=== PATIENT | female | born 1950 | race Two or more races ===

== ENCOUNTER 2022-09-19 15:45 | Inpatient (IN) | payer MEDICARE, MEDICAID ==
[~2022-09-19] VITALS: Ht 149.9 cm; Wt 48.0 kg
[2022-09-19 16:19] LABS: Basophils # (auto) 0.1 10 ^3/uL (0-0.2); Eosinophils # (auto) 0 10 ^3/uL (0-0.8); Eosinophils % (auto) 0.9 % (0.0-7.0); Hematocrit 42.5 % (36.0-46.0); Lymphocytes # (auto) 2.2 10 ^3/uL (0.4-5.4); Lymphocytes % (auto) 39.9 % (10.0-50.0); Mean Corpuscular Hemoglobin 32.7 pg (28.0-32.0); Mean Corpuscular Hgb Conc. 32.9 g/dL (32.0-36.0); Mean Corpuscular Volume 99.6 fL (80.0-100.0); Monocytes # (auto) 0.3 10 ^3/uL (0-1.3); Monocytes % (auto) 5.2 % (0.0-12.0); Nucleated Red Blood Cells % 0.1 %; Red Blood Cells 4.27 10^6/uL (4.0-5.20); Red Cell Distribution Width 12.5 % (11.8-14.3); White Blood Cell 5.6 10^3/uL (4.4-10.8)
[2022-09-19 16:35] LABS: INR 1.05 (0.9-1.15); Partial Thromboplastin Time 31.9 SEC (24.5-34.5)
[2022-09-19 16:37] LABS: Urine Bacteria FEW /hpf (None Seen); Urine Blood Negative /uL (Negative); Urine Clarity Clear (Clear); Urine Color Colorless (Yellow); Urine Protein, UAD TRACE (Negative); Urine Specific Gravity 1.008 (1.001-1.035); Urine Urobilinogen Normal (Negative); Urine WBC 6 /hpf (0 - 5)
[2022-09-19 16:37] LABS: Albumin 4.1 g/dL (3.4-5.0); Calcium 8.8 mg/dL (8.5-10.1); Magnesium 2.8 mg/dL (1.6-2.6); Potassium 3.4 mmol/L (3.5-5.1)
[2022-09-19 16:42] LABS: BUN/Creatinine Ratio 12.8 (10.0-20.0); Bilirubin, Total 0.6 mg/dL (0.2-1.0); Total Protein 8.1 g/dL (6.4-8.2)
[2022-09-19] MEDS ORDERED: dilTIAZem HCL 60 MG TAB GT ONE (17:00)
[2022-09-19] MEDS ORDERED: POTASSIUM EFFERVESENT TAB 25 MEQ PO ONE (17:15)
[2022-09-19] MEDS ORDERED: dilTIAZem HCL 60 MG TAB PO ONE (17:30)
[2022-09-19] MEDS ORDERED: NITROGLYCERIN 0.4 MG SL TAB SL PRN (19:45)
[2022-09-19] MEDS ORDERED: DOCUSATE SOD 100 MG CAP PO PRN (19:45)
[2022-09-19] MEDS ORDERED: HYDROcodone-ACET 5/325MG TAB PO PRN (19:45)
[2022-09-19] MEDS ORDERED: ACETAMINOPHEN 325 MG TAB PO PRN (19:45)
[2022-09-19] MEDS ORDERED: MORPHINE SULFATE INJ 2 MG/ml SYRG IV PRN ×2 (19:45)
[2022-09-19] MEDS ORDERED: DILT-26 PO (19:56)
[2022-09-19] MEDS ORDERED: ALPR0.5T7 PO (19:56)
[2022-09-19] MEDS ORDERED: APIX5TAB PO (19:56)
[2022-09-19] MEDS ORDERED: ROSU1TAB14 PO (19:56)
[2022-09-19] MEDS ORDERED: POTA1TAB4 PO (19:56)
[2022-09-19] MEDS: APIXABAN 5 MG TAB PO SCH (21:01)
[2022-09-19] MEDS ORDERED: ATORVASTATIN 20 MG TAB PO SCH (22:00)
[2022-09-20] MEDS ORDERED: ONDANSETRON HCL 4 MG/2 ML VIAL IV PRN (02:00)
[2022-09-20 04:54] LABS: Basophils # (auto) 0.1 10 ^3/uL (0-0.2); Basophils % (auto) 2.1 % (0.0-2.0); Eosinophils # (auto) 0.1 10 ^3/uL (0-0.8); Eosinophils % (auto) 2.1 % (0.0-7.0); Hematocrit 43.3 % (36.0-46.0); Hemoglobin 14.4 g/dL (12.2-16.2); Lymphocytes # (auto) 1.9 10 ^3/uL (0.4-5.4); Lymphocytes % (auto) 40.7 % (10.0-50.0); Mean Corpuscular Hemoglobin 33.5 pg (28.0-32.0); Mean Corpuscular Hgb Conc. 33.2 g/dL (32.0-36.0); Mean Corpuscular Volume 100.7 fL (80.0-100.0); Monocytes # (auto) 0.4 10 ^3/uL (0-1.3); Monocytes % (auto) 7.6 % (0.0-12.0); Neutrophils # (auto) 2.2 10 ^3/uL (1.6-8.6); Neutrophils % (auto) 47.5 % (37.0-80.0); Nucleated Red Blood Cells % 0.1 %; Red Cell Distribution Width 12.7 % (11.8-14.3); White Blood Cell 4.7 10^3/uL (4.4-10.8)
[2022-09-20 05:00] VITALS: PULSE 80; RESP 16; O2SAT 97
[2022-09-20 05:13] LABS: Albumin 3.9 g/dL (3.4-5.0); Calcium 8.5 mg/dL (8.5-10.1); Potassium 3.7 mmol/L (3.5-5.1)
[2022-09-20 05:16] LABS: BUN/Creatinine Ratio 11.1 (10.0-20.0); Bilirubin, Total 0.8 mg/dL (0.2-1.0); Total Protein 8.1 g/dL (6.4-8.2)
[2022-09-20 08:00] VITALS: PULSE 80; RESP 15; O2SAT 97
[2022-09-20 09:01] LABS: Cholesterol 134 mg/dL (< 200)
[2022-09-20 09:04] LABS: HDL Cholesterol 80 mg/dL (40-59); LDL Cholesterol 47 mg/dL (< 100); Triglycerides 59 mg/dL (< 150)
[2022-09-20] MEDS ORDERED: POTASSIUM CHL 20 Meq TABLET PO SCH (10:00)
[2022-09-20] MEDS: APIXABAN 5 MG TAB PO SCH ×2 (11:11→22:07)
[2022-09-20] MEDS: PANTOPRAZOLE 40 MG TAB PO SCH (11:11)
[2022-09-20] MEDS: dilTIAZem HCL 180MG ER CAP PO SCH (11:12)
[2022-09-20] MEDS: POTASSIUM CHL 20 Meq TABLET PO SCH (11:12)
[2022-09-20 19:28] VITALS: PULSE 76; RESP 19; O2SAT 95
[2022-09-20] MEDS ORDERED: ATORVASTATIN 20 MG TAB PO SCH (22:00)
[2022-09-20 22:30] VITALS: PULSE 80; RESP 17; O2SAT 93
[2022-09-20 22:35] VITALS: BP 115/67; PULSE 76; RESP 17; TEMP 97.7
[2022-09-20 22:38] VITALS: PULSE 80; RESP 17; O2SAT 93
[2022-09-20] MEDS ORDERED: ALEN70TA21 PO (23:36)
[2022-09-21 05:00] VITALS: BP 115/76; PULSE 74; RESP 18; TEMP 97.7; O2SAT 97
[2022-09-21 08:00] VITALS: PULSE 75; PULSE 86; RESP 17; O2SAT 97
[2022-09-21] MEDS: dilTIAZem HCL 180MG ER CAP PO SCH (09:01)
[2022-09-21] MEDS: PANTOPRAZOLE 40 MG TAB PO SCH (09:02)
[2022-09-21] MEDS: APIXABAN 5 MG TAB PO SCH (09:02)
[2022-09-21] MEDS: POTASSIUM CHL 20 Meq TABLET PO SCH (09:02)
[2022-09-21 09:08] VITALS: BP 112/71; PULSE 86; RESP 19; TEMP 98; O2SAT 97
[2022-09-21] MEDS ORDERED: POTASSIUM CHL 20 Meq TABLET PO ONE (10:30)
[2022-09-21] MEDS ORDERED: DILT-102 PO (10:34)
[2022-09-21 11:45] VITALS: BP 112/71; PULSE 85
[2022-09-21 13:00] VITALS: BP 129/97; PULSE 69; RESP 19; TEMP 97.3; O2SAT 99
[2022-09-22] MEDS ORDERED: POTASSIUM CHL 20 Meq TABLET PO SCH (10:00)
[2022-09-22] MEDS ORDERED: dilTIAZem 120MG ER CAP PO SCH (10:00)
== END 2022-09-21 15:57 | disposition home or self-care (01) | DRG 310 ==
LOC: ER 15:45 → TELE 19:56 → TELE-CENTR 09-20 21:49
PROVIDERS: ADMIT Nurse Practitioner Acute Care; ATTEND Nurse Practitioner Acute Care
DX: I48.20 Chronic atrial fibrillation, unspecified (principal); E87.6 Hypokalemia; E78.5 Hyperlipidemia, unspecified; E83.41 Hypermagnesemia; I10 Essential (primary) hypertension; I05.0 Rheumatic mitral stenosis; I25.10 Atherosclerotic heart disease of native coronary artery without angina pectoris; I95.9 Hypotension, unspecified; R00.0 Tachycardia, unspecified; I48.92 Unspecified atrial flutter; Z79.01 Long term (current) use of anticoagulants; Z91.148 Patient's other noncompliance with medication regimen for other reason; Z79.899 Other long term (current) drug therapy
CPT/HCPCS: 36415; 71045; 80053; 80061; 81001; 83735; 83880; 84443; 84484; 85025; 85379; 85610; 85730; 93005; 93306; G0378

== ENCOUNTER 2022-09-29 10:27 | Inpatient (IN) | payer MEDICARE, MEDICAID ==
[~2022-09-29] VITALS: Ht 149.9 cm; Wt 56.3 kg
[~2022-09-29 10:27] MED LIST: ALEN70TA21 PO; APIX5TAB PO; DILT-102 PO; POTA1TAB4 PO; ROSU1TAB14 PO
[2022-09-29 10:56] LABS: Basophils # (auto) 0.1 10 ^3/uL (0-0.2); Basophils % (auto) 1.4 % (0.0-2.0); Eosinophils # (auto) 0.1 10 ^3/uL (0-0.8); Eosinophils % (auto) 2.4 % (0.0-7.0); Hemoglobin 13.9 g/dL (12.2-16.2); Lymphocytes # (auto) 1.6 10 ^3/uL (0.4-5.4); Lymphocytes % (auto) 32.3 % (10.0-50.0); Mean Corpuscular Hemoglobin 33.3 pg (28.0-32.0); Mean Corpuscular Hgb Conc. 33.8 g/dL (32.0-36.0); Mean Corpuscular Volume 98.5 fL (80.0-100.0); Monocytes # (auto) 0.3 10 ^3/uL (0-1.3); Monocytes % (auto) 6.6 % (0.0-12.0); Neutrophils # (auto) 2.8 10 ^3/uL (1.6-8.6); Neutrophils % (auto) 57.3 % (37.0-80.0); Nucleated Red Blood Cells % 0.2 %; Red Blood Cells 4.16 10^6/uL (4.0-5.20); Red Cell Distribution Width 12.3 % (11.8-14.3); White Blood Cell 4.8 10^3/uL (4.4-10.8)
[2022-09-29] MEDS ORDERED: SODIUM CHLORIDE 0.9% 1,000 ML IV ONE (11:00)
[2022-09-29 11:10] LABS: Albumin 4.4 g/dL (3.4-5.0); Calcium 8.9 mg/dL (8.5-10.1); Potassium 3.6 mmol/L (3.5-5.1)
[2022-09-29 11:13] LABS: BUN/Creatinine Ratio 14.6 (10.0-20.0); Total Protein 8.3 g/dL (6.4-8.2)
[2022-09-29 14:23] LABS: Urine WBC None Seen /hpf (0 - 5)
[2022-09-29 14:33] LABS: Urine Bacteria NONE SEEN /hpf (None Seen); Urine Blood Negative /uL (Negative); Urine Clarity Clear (Clear); Urine Color STRAW (Yellow); Urine Protein, UAD Negative (Negative); Urine Specific Gravity 1.006 (1.001-1.035); Urine Urobilinogen Normal (Negative)
[2022-09-29] MEDS ORDERED: ACETAMINOPHEN 325 MG TAB PO PRN (16:00)
[2022-09-29] MEDS ORDERED: dilTIAZem 25 MG/5 ML VIAL IV PRN (16:00)
[2022-09-29] MEDS ORDERED: HYDROcodone-ACET 5/325MG TAB PO PRN (16:00)
[2022-09-29] MEDS ORDERED: ONDANSETRON HCL 4 MG/2 ML VIAL IV PRN (16:00)
[2022-09-29] MEDS ORDERED: DOCUSATE SOD 100 MG CAP PO PRN (16:00)
[2022-09-29] MEDS: dilTIAZem HCL 180MG ER CAP PO SCH (16:11)
[2022-09-29] MEDS ORDERED: ALENDRONATE SODIUM 10 MG TAB PO SCH (16:15)
[2022-09-29 18:00] VITALS: PULSE 91; RESP 18; O2SAT 97
[2022-09-29] MEDS: SODIUM CHLOR 0.9% PF (SALINE LOCK) 10ML VIAL/SYR IV SCH (23:12)
[2022-09-29] MEDS: APIXABAN 5 MG TAB PO SCH (23:12)
[2022-09-29] MEDS: ATORVASTATIN 20 MG TAB PO SCH (23:12)
[2022-09-30] MEDS: SODIUM CHLOR 0.9% PF (SALINE LOCK) 10ML VIAL/SYR IV SCH ×3 (06:02→21:28)
[2022-09-30 07:35] VITALS: PULSE 67; RESP 15; O2SAT 98
[2022-09-30] MEDS: dilTIAZem HCL 180MG ER CAP PO SCH (09:59)
[2022-09-30] MEDS: APIXABAN 5 MG TAB PO SCH ×2 (09:59→21:28)
[2022-09-30 16:08] VITALS: PULSE 67; RESP 16; O2SAT 97
[2022-09-30 17:43] VITALS: BP 131/82; PULSE 67; RESP 16; TEMP 98.6; O2SAT 97
[2022-09-30 18:52] LABS: Basophils # (auto) 0.1 10 ^3/uL (0-0.2); Basophils % (auto) 2.1 % (0.0-2.0); Eosinophils # (auto) 0.1 10 ^3/uL (0-0.8); Eosinophils % (auto) 2.6 % (0.0-7.0); Hematocrit 43.1 % (36.0-46.0); Hemoglobin 14.3 g/dL (12.2-16.2); Lymphocytes # (auto) 1.9 10 ^3/uL (0.4-5.4); Lymphocytes % (auto) 32.8 % (10.0-50.0); Mean Corpuscular Hemoglobin 33.1 pg (28.0-32.0); Mean Corpuscular Hgb Conc. 33.2 g/dL (32.0-36.0); Mean Corpuscular Volume 99.9 fL (80.0-100.0); Monocytes # (auto) 0.5 10 ^3/uL (0-1.3); Monocytes % (auto) 8.4 % (0.0-12.0); Neutrophils # (auto) 3.1 10 ^3/uL (1.6-8.6); Neutrophils % (auto) 54.1 % (37.0-80.0); Red Blood Cells 4.31 10^6/uL (4.0-5.20); Red Cell Distribution Width 12.6 % (11.8-14.3); White Blood Cell 5.7 10^3/uL (4.4-10.8)
[2022-09-30 19:11] LABS: Albumin 3.9 g/dL (3.4-5.0); Calcium 9.4 mg/dL (8.5-10.1); INR 1.05 (0.9-1.15); Partial Thromboplastin Time 31.9 SEC (24.5-34.5); Potassium 3.6 mmol/L (3.5-5.1)
[2022-09-30 19:16] LABS: BUN/Creatinine Ratio 23.8 (10.0-20.0); Bilirubin, Total 0.9 mg/dL (0.2-1.0)
[2022-09-30 20:00] VITALS: PULSE 70; RESP 17
[2022-09-30] MEDS: ATORVASTATIN 20 MG TAB PO SCH (21:28)
[2022-09-30 22:00] VITALS: BP 113/62; PULSE 68; RESP 17; TEMP 97.6; O2SAT 97
[2022-10-01] VITALS (7 sets, daily range): BP systolic 87–138; BP diastolic 59–79; PULSE 58–74; RESP 14–20; TEMP 97.8–98.3; O2SAT 91–99
[2022-10-01] MEDS: SODIUM CHLOR 0.9% PF (SALINE LOCK) 10ML VIAL/SYR IV SCH ×3 (05:19→21:43)
[2022-10-01 06:36] LABS: Basophils # (auto) 0.1 10 ^3/uL (0-0.2); Basophils % (auto) 2.1 % (0.0-2.0); Eosinophils # (auto) 0.2 10 ^3/uL (0-0.8); Eosinophils % (auto) 4.7 % (0.0-7.0); Hematocrit 39.4 % (36.0-46.0); Hemoglobin 13.3 g/dL (12.2-16.2); Lymphocytes # (auto) 1.3 10 ^3/uL (0.4-5.4); Lymphocytes % (auto) 29.9 % (10.0-50.0); Mean Corpuscular Hemoglobin 33.4 pg (28.0-32.0); Mean Corpuscular Hgb Conc. 33.8 g/dL (32.0-36.0); Mean Corpuscular Volume 98.8 fL (80.0-100.0); Monocytes # (auto) 0.4 10 ^3/uL (0-1.3); Monocytes % (auto) 8.8 % (0.0-12.0); Neutrophils # (auto) 2.4 10 ^3/uL (1.6-8.6); Neutrophils % (auto) 54.5 % (37.0-80.0); Nucleated Red Blood Cells % 0.1 %; Red Blood Cells 3.99 10^6/uL (4.0-5.20); Red Cell Distribution Width 12.7 % (11.8-14.3); White Blood Cell 4.3 10^3/uL (4.4-10.8)
[2022-10-01 06:59] LABS: Potassium 3.7 mmol/L (3.5-5.1)
[2022-10-01 07:15] LABS: Albumin 3.6 g/dL (3.4-5.0); BUN/Creatinine Ratio 21.4 (10.0-20.0); Bilirubin, Total 0.8 mg/dL (0.2-1.0); Calcium 9.1 mg/dL (8.5-10.1); Magnesium 2.8 mg/dL (1.6-2.6); Total Protein 7.3 g/dL (6.4-8.2)
[2022-10-01] MEDS: APIXABAN 5 MG TAB PO SCH ×2 (09:12→21:43)
[2022-10-01] MEDS: dilTIAZem HCL 180MG ER CAP PO SCH (09:13)
[2022-10-01] MEDS ORDERED: ERGOCALCIFEROL 50,000 UNIT(1.25MG) CAP PO SCH (10:30)
[2022-10-01] MEDS ORDERED: METOPROLOL TARTRATE 50 MG TAB PO ONE (13:45)
[2022-10-01] MEDS ORDERED: METOPROLOL TARTRATE 1MG/1ML-5ML VIAL IV PRN (13:45)
[2022-10-01] MEDS: ATORVASTATIN 20 MG TAB PO SCH (21:43)
[2022-10-01] MEDS: METOPROLOL TARTRATE 50 MG TAB PO SCH (21:43)
[2022-10-02 05:00] VITALS: BP 112/67; PULSE 63; RESP 14; TEMP 98; O2SAT 97
[2022-10-02] MEDS: SODIUM CHLOR 0.9% PF (SALINE LOCK) 10ML VIAL/SYR IV SCH ×2 (05:40→15:15)
[2022-10-02 06:37] LABS: Basophils # (auto) 0.1 10 ^3/uL (0-0.2); Basophils % (auto) 1.8 % (0.0-2.0); Eosinophils # (auto) 0.2 10 ^3/uL (0-0.8); Eosinophils % (auto) 3.7 % (0.0-7.0); Hematocrit 40.3 % (36.0-46.0); Hemoglobin 13.5 g/dL (12.2-16.2); Lymphocytes # (auto) 1.9 10 ^3/uL (0.4-5.4); Lymphocytes % (auto) 39.6 % (10.0-50.0); Mean Corpuscular Hemoglobin 33.2 pg (28.0-32.0); Mean Corpuscular Hgb Conc. 33.6 g/dL (32.0-36.0); Mean Corpuscular Volume 98.9 fL (80.0-100.0); Monocytes # (auto) 0.4 10 ^3/uL (0-1.3); Monocytes % (auto) 8.9 % (0.0-12.0); Neutrophils # (auto) 2.2 10 ^3/uL (1.6-8.6); Nucleated Red Blood Cells % 0.1 %; Red Blood Cells 4.08 10^6/uL (4.0-5.20); Red Cell Distribution Width 12.3 % (11.8-14.3); White Blood Cell 4.7 10^3/uL (4.4-10.8)
[2022-10-02 08:00] VITALS: PULSE 65; PULSE 67; RESP 16
[2022-10-02 08:41] LABS: Potassium 3.7 mmol/L (3.5-5.1)
[2022-10-02 08:49] LABS: Albumin 3.4 g/dL (3.4-5.0); BUN/Creatinine Ratio 21.9 (10.0-20.0); Bilirubin, Total 0.7 mg/dL (0.2-1.0); Calcium 8.8 mg/dL (8.7-10.4); Magnesium 2.7 mg/dL (1.6-2.6); Total Protein 7.1 g/dL (6.4-8.2)
[2022-10-02 09:00] VITALS: BP 137/87; PULSE 67; RESP 16; TEMP 98.1; O2SAT 98
[2022-10-02] MEDS: METOPROLOL TARTRATE 50 MG TAB PO SCH (09:16)
[2022-10-02] MEDS: dilTIAZem HCL 180MG ER CAP PO SCH (09:16)
[2022-10-02] MEDS: APIXABAN 5 MG TAB PO SCH (09:17)
[2022-10-02] MEDS ORDERED: DILT-102 PO (11:35)
[2022-10-02] MEDS ORDERED: MET50T PO (11:35)
[2022-10-02 15:28] VITALS: BP 110/56; PULSE 62; RESP 18; TEMP 98; O2SAT 94
[2022-10-04] MEDS ORDERED: ALENDRONATE SODIUM 10 MG TAB PO SCH (06:00)
== END 2022-10-02 19:43 | disposition home or self-care (01) | DRG 310 ==
LOC: ER 10:27 → TELE 15:57 → TELE-WESTW 09-30 16:21
PROVIDERS: ADMIT Internal Medicine; ATTEND Internal Medicine
DX: I48.20 Chronic atrial fibrillation, unspecified (principal); I10 Essential (primary) hypertension; M81.0 Age-related osteoporosis without current pathological fracture; E78.5 Hyperlipidemia, unspecified; Z82.5 Family history of asthma and other chronic lower respiratory diseases; Z82.49 Family history of ischemic heart disease and other diseases of the circulatory system; Z84.1 Family history of disorders of kidney and ureter; Z91.148 Patient's other noncompliance with medication regimen for other reason; Z79.01 Long term (current) use of anticoagulants; Z79.899 Other long term (current) drug therapy
CPT/HCPCS: 36415; 71045; 80053; 80061; 81001; 82306; 82607; 83036; 83735; 83880; 84443; 84484; 85025; 85379; 85610; 85730; 93005; 96360; 96361; G0378

== ENCOUNTER 2022-10-17 07:10 | Inpatient (IN) | payer MEDICARE, MEDICAID ==
[~2022-10-17] VITALS: Ht 149.9 cm; Wt 50.9 kg
[~2022-10-17 07:10] MED LIST changes: +MET50T PO
[2022-10-17] MEDS ORDERED: ASPirin 325 MG TAB PO ONE (07:15)
[2022-10-17 07:42] LABS: Urine Bacteria FEW /hpf (None Seen); Urine Blood Negative /uL (Negative); Urine Clarity Clear (Clear); Urine Color Colorless (Yellow); Urine Protein, UAD Negative (Negative); Urine Specific Gravity 1.006 (1.001-1.035); Urine Urobilinogen Normal (Negative); Urine WBC <1 /hpf (0 - 5)
[2022-10-17 07:54] LABS: Basophils # (auto) 0.1 10 ^3/uL (0-0.2); Basophils % (auto) 1.4 % (0.0-2.0); Eosinophils # (auto) 0.1 10 ^3/uL (0-0.8); Hemoglobin 13.9 g/dL (12.2-16.2); Lymphocytes # (auto) 1.6 10 ^3/uL (0.4-5.4); Lymphocytes % (auto) 30.4 % (10.0-50.0); Mean Corpuscular Hemoglobin 33.2 pg (28.0-32.0); Mean Corpuscular Volume 100.5 fL (80.0-100.0); Monocytes # (auto) 0.3 10 ^3/uL (0-1.3); Neutrophils # (auto) 3.2 10 ^3/uL (1.6-8.6); Neutrophils % (auto) 61.2 % (37.0-80.0); Nucleated Red Blood Cells % 0.1 %; Red Blood Cells 4.18 10^6/uL (4.0-5.20); Red Cell Distribution Width 13.3 % (11.8-14.3); White Blood Cell 5.2 10^3/uL (4.4-10.8)
[2022-10-17 08:02] VITALS: PULSE 106
[2022-10-17 08:14] LABS: Alanine Aminotransferase 33 U/L (7-40); Albumin 4.7 g/dL (3.2-4.8); Alkaline Phosphatase 79 U/L (46-116); Anion Gap 8.8 (5-15); Aspartate Aminotransferase 23 U/L (13-40); BUN/Creatinine Ratio 20.5 (10.0-20.0); Blood Urea Nitrogen 16 mg/dL (9-23); Calcium 9.5 mg/dL (8.5-10.1); Carbon Dioxide 25.2 mmol/L (20-30); Chloride 108 mmol/L (98-107); Glucose 65 mg/dL (74-106); Magnesium 2.3 mg/dL (1.6-2.6); Potassium 3.9 mmol/L (3.5-5.1); Sodium 142 mmol/L (136-145)
[2022-10-17 08:15] LABS: Bilirubin, Total 0.8 mg/dL (0.2-1.0); Total Protein 7.9 g/dL (5.7-8.2)
[2022-10-17] MEDS ORDERED: DILT120T3 PO (11:44)
[2022-10-17] MEDS ORDERED: METO25TA93 PO (11:44)
[2022-10-17] MEDS ORDERED: MORPHINE SULFATE INJ 2 MG/ml SYRG IV PRN (11:45)
[2022-10-17] MEDS ORDERED: DOCUSATE SOD 100 MG CAP PO PRN (11:45)
[2022-10-17] MEDS ORDERED: NITROGLYCERIN 0.4 MG SL TAB SL PRN (11:45)
[2022-10-17] MEDS ORDERED: ONDANSETRON HCL 4 MG/2 ML VIAL IV PRN (11:45)
[2022-10-17] MEDS ORDERED: HYDROcodone-ACET 5/325MG TAB PO PRN (11:45)
[2022-10-17] MEDS ORDERED: ACETAMINOPHEN 325 MG TAB PO PRN (11:45)
[2022-10-17] MEDS ORDERED: APIXABAN 5 MG TAB PO SCH ×2 (12:00→22:00)
[2022-10-17] MEDS: SODIUM CHLOR 0.9% PF (SALINE LOCK) 10ML VIAL/SYR IV SCH ×2 (14:00→20:26)
[2022-10-17] MEDS ORDERED: DIGOXIN (250MCG/ML) 2 ML AMPULE IV ONE ×3 (15:30→21:00)
[2022-10-17 16:44] VITALS: BP 139/79; PULSE 123; RESP 18; TEMP 98.2; O2SAT 98
[2022-10-17 16:52] VITALS: BP 139/79; PULSE 123; RESP 18; TEMP 98.2; O2SAT 96
[2022-10-17] MEDS ORDERED: dilTIAZem 25 MG/5 ML VIAL IV ONE (19:45)
[2022-10-17] MEDS: ATORVASTATIN 20 MG TAB PO SCH (20:23)
[2022-10-17] MEDS: APIXABAN 5 MG TAB PO SCH (20:23)
[2022-10-17 22:00] VITALS: BP 124/81; PULSE 86; RESP 17; TEMP 97.6; O2SAT 97
[2022-10-17] MEDS ORDERED: METOPROLOL SUCCINATE XL 50 MG TAB PO SCH (22:00)
[2022-10-17] MEDS ORDERED: ATORVASTATIN 20 MG TAB PO SCH (22:00)
[2022-10-18] VITALS (7 sets, daily range): BP systolic 110–123; BP diastolic 62–87; PULSE 66–87; RESP 15–18; TEMP 97.6–98.1; O2SAT 97–100
[2022-10-18] MEDS: SODIUM CHLOR 0.9% PF (SALINE LOCK) 10ML VIAL/SYR IV SCH ×3 (06:30→21:13)
[2022-10-18 07:13] LABS: Alanine Aminotransferase 26 U/L (7-40); Albumin 4.2 g/dL (3.2-4.8); Alkaline Phosphatase 57 U/L (46-116); Anion Gap 6.3 (5-15); Aspartate Aminotransferase 19 U/L (13-40); BUN/Creatinine Ratio 23.5 (10.0-20.0); Bilirubin, Total 1.2 mg/dL (0.2-1.0); Blood Urea Nitrogen 19 mg/dL (9-23); Calcium 9.1 mg/dL (8.5-10.1); Carbon Dioxide 24.7 mmol/L (20-30); Chloride 110 mmol/L (98-107); Glucose 95 mg/dL (74-106); Potassium 4.1 mmol/L (3.5-5.1); Sodium 141 mmol/L (136-145); Total Protein 7.2 g/dL (5.7-8.2)
[2022-10-18 07:29] LABS: Basophils # (auto) 0.1 10 ^3/uL (0-0.2); Basophils % (auto) 1.2 % (0.0-2.0); Eosinophils # (auto) 0.1 10 ^3/uL (0-0.8); Eosinophils % (auto) 2.3 % (0.0-7.0); Hematocrit 42.2 % (36.0-46.0); Hemoglobin 14.3 g/dL (12.2-16.2); Lymphocytes # (auto) 1.9 10 ^3/uL (0.4-5.4); Mean Corpuscular Hemoglobin 33.5 pg (28.0-32.0); Mean Corpuscular Hgb Conc. 33.9 g/dL (32.0-36.0); Mean Corpuscular Volume 98.9 fL (80.0-100.0); Monocytes # (auto) 0.4 10 ^3/uL (0-1.3); Neutrophils # (auto) 2.8 10 ^3/uL (1.6-8.6); Neutrophils % (auto) 53.5 % (37.0-80.0); Nucleated Red Blood Cells % 0.1 %; Red Blood Cells 4.27 10^6/uL (4.0-5.20); Red Cell Distribution Width 12.8 % (11.8-14.3); White Blood Cell 5.3 10^3/uL (4.4-10.8)
[2022-10-18] MEDS: DIGOXIN 0.125 MG TAB PO SCH (10:24)
[2022-10-18] MEDS: dilTIAZem 120MG ER CAP PO SCH (10:24)
[2022-10-18] MEDS: APIXABAN 5 MG TAB PO SCH ×2 (10:24→21:13)
[2022-10-18] MEDS: ATORVASTATIN 20 MG TAB PO SCH (21:13)
[2022-10-19 05:00] VITALS: BP 129/76; PULSE 66; RESP 18; TEMP 97.8; O2SAT 100
[2022-10-19] MEDS: SODIUM CHLOR 0.9% PF (SALINE LOCK) 10ML VIAL/SYR IV SCH ×2 (06:18→17:39)
[2022-10-19 08:00] VITALS: BP 140/81; PULSE 71; PULSE 79; RESP 16; TEMP 97.7; O2SAT 99
[2022-10-19 09:00] VITALS: BP 140/81; PULSE 71; RESP 16; TEMP 97.7; O2SAT 99
[2022-10-19] MEDS: APIXABAN 5 MG TAB PO SCH (11:04)
[2022-10-19] MEDS: DIGOXIN 0.125 MG TAB PO SCH (11:04)
[2022-10-19] MEDS: dilTIAZem 120MG ER CAP PO SCH (11:04)
[2022-10-19] MEDS ORDERED: DIGO0.12 PO (12:25)
[2022-10-19 13:00] VITALS: BP 120/52; PULSE 68; RESP 18; TEMP 97.7; O2SAT 96
== END 2022-10-19 17:51 | disposition home or self-care (01) | DRG 309 ==
LOC: ER 07:10 → TELE 11:42 → TELE-WESTW 16:07
PROVIDERS: ADMIT Nurse Practitioner Family; ATTEND Family Medicine
DX: I48.19 Other persistent atrial fibrillation (principal); Q21.10 Atrial septal defect, unspecified; E78.5 Hyperlipidemia, unspecified; I10 Essential (primary) hypertension; I95.2 Hypotension due to drugs; T50.995A Adverse effect of other drugs, medicaments and biological substances, initial encounter; Z79.01 Long term (current) use of anticoagulants; Z82.49 Family history of ischemic heart disease and other diseases of the circulatory system; Z82.5 Family history of asthma and other chronic lower respiratory diseases; Z79.899 Other long term (current) drug therapy; Z91.148 Patient's other noncompliance with medication regimen for other reason
CPT/HCPCS: 36415; 71046; 80053; 80162; 81001; 83735; 84443; 84484; 85025; 93005; 96374; G0378

== ENCOUNTER 2022-12-11 11:37 | Inpatient (IN) | payer MEDICARE, MEDICAID ==
[~2022-12-11] VITALS: Ht 149.9 cm; Wt 49.2 kg
[~2022-12-11 11:37] MED LIST changes: +DIGO0.12 PO; -DILT-102 PO; +DILT120T3 PO; -MET50T PO; +METO25TA93 PO
[2022-12-11 12:17] LABS: Basophils # (auto) 0.1 10 ^3/uL (0-0.2); Basophils % (auto) 1.4 % (0.0-2.0); Eosinophils # (auto) 0 10 ^3/uL (0-0.8); Eosinophils % (auto) 0.9 % (0.0-7.0); Hematocrit 42.2 % (36.0-46.0); Lymphocytes % (auto) 42.8 % (10.0-50.0); Mean Corpuscular Hemoglobin 33.2 pg (28.0-32.0); Mean Corpuscular Hgb Conc. 33.3 g/dL (32.0-36.0); Mean Corpuscular Volume 99.8 fL (80.0-100.0); Monocytes # (auto) 0.3 10 ^3/uL (0-1.3); Monocytes % (auto) 6.2 % (0.0-12.0); Neutrophils # (auto) 2.3 10 ^3/uL (1.6-8.6); Neutrophils % (auto) 48.7 % (37.0-80.0); Red Blood Cells 4.22 10^6/uL (4.0-5.20); Red Cell Distribution Width 12.8 % (11.8-14.3); White Blood Cell 4.6 10^3/uL (4.4-10.8)
[2022-12-11 12:33] LABS: Alanine Aminotransferase 17 U/L (7-40); Albumin 4.5 g/dL (3.2-4.8); Alkaline Phosphatase 72 U/L (46-116); Anion Gap 3 (5-15); Aspartate Aminotransferase 21 U/L (13-40); BUN/Creatinine Ratio 11.6 (10.0-20.0); Blood Urea Nitrogen 10 mg/dL (9-23); Calcium 9.1 mg/dL (8.7-10.4); Carbon Dioxide 30 mmol/L (20-30); Chloride 107 mmol/L (98-107); Glucose 172 mg/dL (74-106); Magnesium 2.2 mg/dL (1.6-2.6); Potassium 3.4 mmol/L (3.5-5.1); Sodium 140 mmol/L (136-145)
[2022-12-11 12:34] LABS: Bilirubin, Total 1.1 mg/dL (0.2-1.0); Total Protein 7.5 g/dL (5.7-8.2)
[2022-12-11] MEDS ORDERED: ACETAMINOPHEN 325 MG TAB PO PRN (15:00)
[2022-12-11] MEDS ORDERED: NITROGLYCERIN 0.4 MG SL TAB SL PRN (15:00)
[2022-12-11] MEDS ORDERED: ONDANSETRON HCL 4 MG/2 ML VIAL IV PRN (15:00)
[2022-12-11] MEDS ORDERED: DOCUSATE SOD 100 MG CAP PO PRN (15:00)
[2022-12-11] MEDS ORDERED: MORPHINE SULFATE INJ 2 MG/ml SYRG IV PRN (15:00)
[2022-12-11] MEDS ORDERED: METOPROLOL TARTRATE 25 MG TAB PO ONE (15:15)
[2022-12-11] MEDS ORDERED: ALENDRONATE SODIUM PO SCH (15:15)
[2022-12-11] MEDS ORDERED: POTASSIUM EFFERVESENT TAB 25 MEQ PO ONE (15:15)
[2022-12-11] MEDS: APIXABAN 5 MG TAB PO SCH (23:03)
[2022-12-11] MEDS: ATORVASTATIN 20 MG TAB PO SCH (23:03)
[2022-12-11 23:06] VITALS: BP 130/80; PULSE 70; RESP 16; RESP 18; O2SAT 98
[2022-12-11] MEDS ORDERED: ROSU20TA14 PO (23:10)
[2022-12-11] MEDS ORDERED: DILT180C49 PO (23:12)
[2022-12-11] MEDS ORDERED: CALC280T PO (23:15)
[2022-12-11] MEDS ORDERED: CHOL20007 OR (23:15)
[2022-12-11] MEDS ORDERED: [UNRECOGNIZED DRUG - CODE] OR (23:16)
[2022-12-11] MEDS ORDERED: B-COCAP34 OR (23:16)
[2022-12-12] VITALS (9 sets, daily range): BP systolic 102–130; BP diastolic 54–82; PULSE 58–75; RESP 16–18; TEMP 97.7–98.8; O2SAT 96–99
[2022-12-12 06:31] LABS: Basophils # (auto) 0.1 10 ^3/uL (0-0.2); Basophils % (auto) 1.7 % (0.0-2.0); Eosinophils # (auto) 0.2 10 ^3/uL (0-0.8); Eosinophils % (auto) 4.5 % (0.0-7.0); Hematocrit 39.2 % (36.0-46.0); Hemoglobin 12.8 g/dL (12.2-16.2); Lymphocytes # (auto) 1.6 10 ^3/uL (0.4-5.4); Lymphocytes % (auto) 38.8 % (10.0-50.0); Mean Corpuscular Hgb Conc. 32.7 g/dL (32.0-36.0); Mean Corpuscular Volume 100.7 fL (80.0-100.0); Monocytes # (auto) 0.3 10 ^3/uL (0-1.3); Monocytes % (auto) 7.9 % (0.0-12.0); Neutrophils # (auto) 1.9 10 ^3/uL (1.6-8.6); Neutrophils % (auto) 47.1 % (37.0-80.0); Red Blood Cells 3.89 10^6/uL (4.0-5.20); Red Cell Distribution Width 12.8 % (11.8-14.3); White Blood Cell 4.1 10^3/uL (4.4-10.8)
[2022-12-12 06:49] LABS: Alanine Aminotransferase 13 U/L (7-40); Albumin 4.1 g/dL (3.2-4.8); Alkaline Phosphatase 59 U/L (46-116); Anion Gap 7 (5-15); Aspartate Aminotransferase 19 U/L (13-40); BUN/Creatinine Ratio 13.8 (10.0-20.0); Bilirubin, Total 1.4 mg/dL (0.2-1.0); Blood Urea Nitrogen 11 mg/dL (9-23); Calcium 8.9 mg/dL (8.7-10.4); Carbon Dioxide 27 mmol/L (20-30); Chloride 106 mmol/L (98-107); Glucose 88 mg/dL (74-106); Potassium 3.3 mmol/L (3.5-5.1); Sodium 140 mmol/L (136-145); Total Protein 7.1 g/dL (5.7-8.2)
[2022-12-12] MEDS: POTASSIUM CHL 20 Meq TABLET PO SCH (08:49)
[2022-12-12] MEDS: APIXABAN 5 MG TAB PO SCH ×2 (08:49→21:59)
[2022-12-12] MEDS ORDERED: DIGOXIN 0.125 MG TAB PO SCH (10:00)
[2022-12-12] MEDS ORDERED: PANTOPRAZOLE 40 MG TAB PO SCH (10:00)
[2022-12-12] MEDS ORDERED: PATIENTS OWN MEDICATION PO SCH (10:00)
[2022-12-12] MEDS ORDERED: dilTIAZem 120MG ER CAP PO SCH (10:00)
[2022-12-12] MEDS ORDERED: POTASSIUM EFFERVESENT TAB 25 MEQ PO ONE (12:45)
[2022-12-12] MEDS: FLECAINIDE ACETATE 50 MG TAB PO SCH (21:58)
[2022-12-12] MEDS: ATORVASTATIN 20 MG TAB PO SCH (21:58)
[2022-12-13 05:00] VITALS: BP 123/77; PULSE 77; RESP 18; TEMP 98; O2SAT 98
[2022-12-13 06:55] LABS: Chloride 106 mmol/L (98-107); Potassium 3.9 mmol/L (3.5-5.1); Sodium 141 mmol/L (136-145)
[2022-12-13 06:57] LABS: Calcium 9.1 mg/dL (8.7-10.4)
[2022-12-13 07:01] LABS: BUN/Creatinine Ratio 14.3 (10.0-20.0); Blood Urea Nitrogen 11 mg/dL (9-23); Glucose 91 mg/dL (74-106)
[2022-12-13 07:02] LABS: Magnesium 2.1 mg/dL (1.6-2.6)
[2022-12-13 07:05] LABS: Basophils # (auto) 0.1 10 ^3/uL (0-0.2); Basophils % (auto) 1.9 % (0.0-2.0); Eosinophils # (auto) 0.2 10 ^3/uL (0-0.8); Eosinophils % (auto) 4.2 % (0.0-7.0); Hematocrit 37.3 % (36.0-46.0); Hemoglobin 12.4 g/dL (12.2-16.2); Lymphocytes # (auto) 1.5 10 ^3/uL (0.4-5.4); Lymphocytes % (auto) 38.5 % (10.0-50.0); Mean Corpuscular Hemoglobin 33.5 pg (28.0-32.0); Mean Corpuscular Hgb Conc. 33.2 g/dL (32.0-36.0); Mean Corpuscular Volume 100.9 fL (80.0-100.0); Monocytes # (auto) 0.4 10 ^3/uL (0-1.3); Monocytes % (auto) 9.2 % (0.0-12.0); Neutrophils # (auto) 1.8 10 ^3/uL (1.6-8.6); Neutrophils % (auto) 46.2 % (37.0-80.0); Red Cell Distribution Width 12.7 % (11.8-14.3); White Blood Cell 3.8 10^3/uL (4.4-10.8)
[2022-12-13 07:37] LABS: Anion Gap 8 (5-15); Carbon Dioxide 27 mmol/L (20-30)
[2022-12-13 08:00] VITALS: PULSE 77
[2022-12-13] MEDS: FLECAINIDE ACETATE 50 MG TAB PO SCH (08:36)
[2022-12-13] MEDS: POTASSIUM CHL 20 Meq TABLET PO SCH (08:36)
[2022-12-13] MEDS: APIXABAN 5 MG TAB PO SCH (08:36)
[2022-12-13 09:00] VITALS: BP 139/86; PULSE 79; RESP 18; TEMP 98.1; O2SAT 97
[2022-12-13] MEDS ORDERED: dilTIAZem 120MG ER CAP PO SCH (10:00)
[2022-12-13] MEDS ORDERED: dilTIAZem HCL 180MG ER CAP PO SCH (10:00)
[2022-12-13] MEDS ORDERED: DILT120C54 PO (10:27)
[2022-12-13] MEDS ORDERED: FLE50T PO (10:27)
[2022-12-13 13:00] VITALS: BP 141/83; PULSE 80; RESP 19; TEMP 97.8; O2SAT 95
[2023-01-01] MEDS ORDERED: BENZ100C97 PO ×2 (11:51)
[2023-01-01] MEDS ORDERED: ACET500T58 PO ×2 (11:51)
== END 2022-12-13 13:19 | disposition home or self-care (01) | DRG 309 ==
LOC: ER 11:37 → TELE 14:59 → TELE-WESTW 21:07
PROVIDERS: ADMIT Nurse Practitioner Family; ATTEND Internal Medicine Geriatric Medicine
DX: I48.0 Paroxysmal atrial fibrillation (principal); Q21.10 Atrial septal defect, unspecified; E87.6 Hypokalemia; I10 Essential (primary) hypertension; E78.5 Hyperlipidemia, unspecified; R00.1 Bradycardia, unspecified; I25.10 Atherosclerotic heart disease of native coronary artery without angina pectoris; M81.0 Age-related osteoporosis without current pathological fracture; Z82.49 Family history of ischemic heart disease and other diseases of the circulatory system; Z79.01 Long term (current) use of anticoagulants; Z82.5 Family history of asthma and other chronic lower respiratory diseases
CPT/HCPCS: 36415; 71046; 80048; 80053; 80162; 83735; 83880; 84484; 85025; 93005; 99291; G0378

== ENCOUNTER 2023-01-01 09:12 | Emergency (ER) | payer MEDICARE, MEDICAID ==
[~2023-01-01] VITALS: Ht 152.4 cm; Wt 47.3 kg
[~2023-01-01 09:12] MED LIST changes: +CALC280T PO; +CHOL20007 OR; -DIGO0.12 PO; +DILT120C54 PO; -DILT120T3 PO; +FLE50T PO; -METO25TA93 PO; -ROSU1TAB14 PO; +ROSU20TA14 PO
[2023-01-01 09:54] VITALS: BP 117/72; PULSE 107; RESP 18; TEMP 98.8; O2SAT 96
[2023-01-01 11:09] LABS: Rapid Influenza A Negative (Negative); Rapid Influenza B Negative (Negative)
[2023-01-01 11:30] LABS: COVID19 ANTIGEN SOFIA FIA POSITIVE (NEGATIVE)
[2023-01-01] MEDS ORDERED: BENZ100C97 PO (11:51)
[2023-01-01] MEDS ORDERED: ACET500T58 PO (11:51)
== END 2023-01-01 11:51 | disposition home or self-care (01) ==
LOC: ER 09:12
DX: U07.1 COVID-19 (principal); E78.5 Hyperlipidemia, unspecified; I10 Essential (primary) hypertension
CPT/HCPCS: 36415; 71046; 87426; 87804

== ENCOUNTER 2023-01-16 11:18 | Inpatient (IN) | payer MEDICARE, MEDICAID ==
[~2023-01-16] VITALS: Ht 149.9 cm; Wt 54.1 kg
[~2023-01-16 11:18] MED LIST changes: +ACET500T58 PO; +BENZ100C97 PO
[2023-01-16] MEDS ORDERED: dilTIAZem 25 MG/5 ML VIAL IV ONE (12:15)
[2023-01-16 12:19] LABS: Basophils # (auto) 0 10 ^3/uL (0-0.2); Eosinophils # (auto) 0 10 ^3/uL (0-0.8); Eosinophils % (auto) 0.6 % (0.0-7.0); Hematocrit 40.8 % (36.0-46.0); Hemoglobin 13.4 g/dL (12.2-16.2); Lymphocytes # (auto) 1.4 10 ^3/uL (0.4-5.4); Lymphocytes % (auto) 27.7 % (10.0-50.0); Mean Corpuscular Hemoglobin 32.6 pg (28.0-32.0); Mean Corpuscular Hgb Conc. 32.9 g/dL (32.0-36.0); Mean Corpuscular Volume 99.3 fL (80.0-100.0); Monocytes # (auto) 0.3 10 ^3/uL (0-1.3); Monocytes % (auto) 6.1 % (0.0-12.0); Neutrophils # (auto) 3.3 10 ^3/uL (1.6-8.6); Neutrophils % (auto) 64.6 % (37.0-80.0); Nucleated Red Blood Cells % 0.1 %; Red Blood Cells 4.11 10^6/uL (4.0-5.20); Red Cell Distribution Width 13.1 % (11.8-14.3)
[2023-01-16 12:55] LABS: Alanine Aminotransferase 17 U/L (7-40); Albumin 4.7 g/dL (3.2-4.8); Alkaline Phosphatase 69 U/L (46-116); Anion Gap 7 (5-15); Aspartate Aminotransferase 21 U/L (13-40); BUN/Creatinine Ratio 11.6 (10.0-20.0); Bilirubin, Total 0.8 mg/dL (0.2-1.0); Blood Urea Nitrogen 8 mg/dL (9-23); Calcium 9.2 mg/dL (8.7-10.4); Carbon Dioxide 27 mmol/L (20-30); Chloride 107 mmol/L (98-107); Glucose 93 mg/dL (74-106); Potassium 3.8 mmol/L (3.5-5.1); Sodium 141 mmol/L (136-145); Total Protein 7.9 g/dL (5.7-8.2)
[2023-01-16 12:59] LABS: Urine Bacteria NONE SEEN /hpf (None Seen); Urine Blood Negative /uL (Negative); Urine Clarity Clear (Clear); Urine Color Colorless (Yellow); Urine Protein, UAD Negative (Negative); Urine Specific Gravity 1.004 (1.001-1.035); Urine Urobilinogen Normal (Negative); Urine WBC 1 /hpf (0 - 5)
[2023-01-16] MEDS ORDERED: ALPRAZolam 0.25 MG TAB PO PRN (18:30)
[2023-01-16] MEDS ORDERED: MORPHINE SULFATE INJ 2 MG/ml SYRG IV PRN (18:30)
[2023-01-16] MEDS ORDERED: NITROGLYCERIN 0.4 MG SL TAB SL PRN (18:30)
[2023-01-16] MEDS ORDERED: FLECAINIDE ACETATE 50 MG TAB PO SCH (22:00)
[2023-01-16] MEDS: APIXABAN 5 MG TAB PO SCH (23:34)
[2023-01-16] MEDS: METOPROLOL TARTRATE 25 MG TAB PO SCH (23:35)
[2023-01-17 05:05] VITALS: BP 99/50; PULSE 83; RESP 14; TEMP 98; O2SAT 99
[2023-01-17 08:00] VITALS: PULSE 65; PULSE 67; RESP 16
[2023-01-17] MEDS: APIXABAN 5 MG TAB PO SCH ×2 (09:21→23:45)
[2023-01-17] MEDS: POTASSIUM CHL 20 Meq TABLET PO SCH (09:22)
[2023-01-17] MEDS: METOPROLOL TARTRATE 25 MG TAB PO SCH ×2 (09:24→23:45)
[2023-01-17 09:27] LABS: INR 1.09 (0.9-1.15); Prothrombin Time 11.4 sec (9.3-11.8)
[2023-01-17] MEDS: FLECAINIDE ACETATE 50 MG TAB PO SCH (09:34)
[2023-01-17 12:06] LABS: Triglycerides 76 mg/dL (< 150)
[2023-01-17 12:07] LABS: LDL Cholesterol 53 mg/dL (< 100)
[2023-01-17 12:08] LABS: Cholesterol 140 mg/dL (< 200); HDL Cholesterol 69 mg/dL (40-59)
[2023-01-17 12:30] VITALS: BP 105/68; PULSE 55; RESP 20; TEMP 97.8; O2SAT 98
[2023-01-17 16:30] VITALS: BP 100/50; PULSE 63; RESP 17; TEMP 98.3; O2SAT 95
[2023-01-17 20:00] VITALS: PULSE 69
[2023-01-17 22:00] VITALS: BP 122/71; PULSE 70; RESP 18; TEMP 98.2; O2SAT 100
[2023-01-17] MEDS ORDERED: ATORVASTATIN 20 MG TAB PO SCH ×2 (22:00)
[2023-01-18] MEDS: FLECAINIDE ACETATE 50 MG TAB PO SCH ×2 (01:46→09:56)
[2023-01-18 05:00] VITALS: BP 123/78; PULSE 62; RESP 18; TEMP 98.1; O2SAT 100
[2023-01-18 05:55] LABS: Basophils # (auto) 0 10 ^3/uL (0-0.2); Basophils % (auto) 1.1 % (0.0-2.0); Eosinophils # (auto) 0.1 10 ^3/uL (0-0.8); Eosinophils % (auto) 2.3 % (0.0-7.0); Hematocrit 38.5 % (36.0-46.0); Hemoglobin 12.5 g/dL (12.2-16.2); Lymphocytes # (auto) 1.4 10 ^3/uL (0.4-5.4); Lymphocytes % (auto) 32.3 % (10.0-50.0); Mean Corpuscular Hemoglobin 32.6 pg (28.0-32.0); Mean Corpuscular Hgb Conc. 32.6 g/dL (32.0-36.0); Mean Corpuscular Volume 100.2 fL (80.0-100.0); Monocytes # (auto) 0.3 10 ^3/uL (0-1.3); Neutrophils # (auto) 2.4 10 ^3/uL (1.6-8.6); Neutrophils % (auto) 56.3 % (37.0-80.0); Nucleated Red Blood Cells % 0.2 %; Red Blood Cells 3.84 10^6/uL (4.0-5.20); Red Cell Distribution Width 13.4 % (11.8-14.3); White Blood Cell 4.3 10^3/uL (4.4-10.8)
[2023-01-18 06:00] LABS: Alanine Aminotransferase 26 U/L (7-40); Alkaline Phosphatase 59 U/L (46-116); Anion Gap 8 (5-15); BUN/Creatinine Ratio 18.1 (10.0-20.0); Blood Urea Nitrogen 15 mg/dL (9-23); Calcium 9.1 mg/dL (8.5-10.1); Carbon Dioxide 26 mmol/L (20-30); Chloride 106 mmol/L (98-107); Glucose 96 mg/dL (74-106); Sodium 140 mmol/L (136-145)
[2023-01-18 06:01] LABS: Albumin 3.9 g/dL (3.2-4.8); Aspartate Aminotransferase 34 U/L (13-40); Bilirubin, Total 0.8 mg/dL (0.2-1.0); Total Protein 6.6 g/dL (5.7-8.2)
[2023-01-18 08:00] VITALS: PULSE 65; RESP 16
[2023-01-18] MEDS ORDERED: FLE50T PO (08:11)
[2023-01-18] MEDS ORDERED: MET25T PO (08:11)
[2023-01-18 09:31] VITALS: BP 123/87; PULSE 65; RESP 16; TEMP 98.2; O2SAT 98
[2023-01-18] MEDS: POTASSIUM CHL 20 Meq TABLET PO SCH (09:57)
[2023-01-18] MEDS: APIXABAN 5 MG TAB PO SCH (09:57)
[2023-01-18] MEDS: METOPROLOL TARTRATE 25 MG TAB PO SCH (10:00)
[2023-01-18 13:29] VITALS: BP 107/59; PULSE 67; RESP 16; TEMP 36.8; O2SAT 98
== END 2023-01-18 14:20 | disposition home or self-care (01) | DRG 308 ==
LOC: ER 11:18 → TELE 18:22 → TELE-WESTW 01-17 04:34
PROVIDERS: ADMIT Internal Medicine; ATTEND Internal Medicine
DX: I48.20 Chronic atrial fibrillation, unspecified (principal); I50.33 Acute on chronic diastolic (congestive) heart failure; I13.0 Hypertensive heart and chronic kidney disease with heart failure and stage 1 through stage 4 chronic kidney disease, or unspecified chronic kidney disease; D68.59 Other primary thrombophilia; E78.5 Hyperlipidemia, unspecified; M81.0 Age-related osteoporosis without current pathological fracture; F41.9 Anxiety disorder, unspecified; I25.10 Atherosclerotic heart disease of native coronary artery without angina pectoris; Z79.01 Long term (current) use of anticoagulants; Z79.83 Long term (current) use of bisphosphonates; Z79.899 Other long term (current) drug therapy; Z80.3 Family history of malignant neoplasm of breast; Z82.5 Family history of asthma and other chronic lower respiratory diseases; Z85.72 Personal history of non-Hodgkin lymphomas
CPT/HCPCS: 36415; 71046; 80053; 80061; 80162; 81001; 82306; 82607; 83735; 83880; 84443; 84484; 85025; 85610; 93005; 93306; G0378

== ENCOUNTER 2023-01-24 13:34 | Inpatient (IN) | payer MEDICARE, MEDICAID ==
[~2023-01-24] VITALS: Ht 149.9 cm; Wt 59.6 kg
[~2023-01-24 13:34] MED LIST changes: -DILT120C54 PO; +MET25T PO
[2023-01-24 14:45] VITALS: PULSE 92; O2SAT 95
[2023-01-24 15:38] LABS: Basophils # (auto) 0.1 10 ^3/uL (0-0.2); Basophils % (auto) 1.3 % (0.0-2.0); Eosinophils # (auto) 0 10 ^3/uL (0-0.8); Eosinophils % (auto) 0.8 % (0.0-7.0); Lymphocytes # (auto) 1.2 10 ^3/uL (0.4-5.4); Lymphocytes % (auto) 29.1 % (10.0-50.0); Mean Corpuscular Hemoglobin 33.6 pg (28.0-32.0); Mean Corpuscular Hgb Conc. 33.3 g/dL (32.0-36.0); Mean Corpuscular Volume 101.1 fL (80.0-100.0); Monocytes # (auto) 0.3 10 ^3/uL (0-1.3); Monocytes % (auto) 6.5 % (0.0-12.0); Neutrophils # (auto) 2.5 10 ^3/uL (1.6-8.6); Neutrophils % (auto) 62.3 % (37.0-80.0); Red Blood Cells 3.86 10^6/uL (4.0-5.20)
[2023-01-24 16:21] LABS: Urine Bacteria FEW /hpf (None Seen); Urine Blood Negative /uL (Negative); Urine Clarity Clear (Clear); Urine Color Colorless (Yellow); Urine Hyaline Cast FEW /lpf (0 - 2); Urine Protein, UAD Negative (Negative); Urine Specific Gravity 1.006 (1.001-1.035); Urine Urobilinogen Normal (Negative); Urine WBC 1 /hpf (0 - 5); Urine pH 6.5 (5.0-8.0)
[2023-01-24 17:14] LABS: Alanine Aminotransferase 67 U/L (7-40); Albumin 3.8 g/dL (3.2-4.8); Alkaline Phosphatase 80 U/L (46-116); Anion Gap 5 (5-15); Aspartate Aminotransferase 65 U/L (13-40); Blood Urea Nitrogen 10 mg/dL (9-23); Calcium 8.8 mg/dL (8.7-10.4); Carbon Dioxide 27 mmol/L (20-30); Chloride 109 mmol/L (98-107); Glucose 125 mg/dL (74-106); Lipase 32 U/L (12-53); Potassium 3.9 mmol/L (3.5-5.1); Sodium 141 mmol/L (136-145)
[2023-01-24 17:15] LABS: Bilirubin, Total 0.5 mg/dL (0.2-1.0); Total Protein 6.5 g/dL (5.7-8.2)
[2023-01-24] MEDS ORDERED: SULFAMETHOX W/TRIMETH(800/160MG) DS TAB PO ONE ×2 (17:30→18:52)
[2023-01-24] MEDS ORDERED: ONDANSETRON HCL 4 MG/2 ML VIAL IV PRN (19:00)
[2023-01-24] MEDS ORDERED: ACETAMINOPHEN 325 MG TAB PO PRN (19:00)
[2023-01-24] MEDS ORDERED: DOCUSATE SOD 100 MG CAP PO PRN (19:00)
[2023-01-24] MEDS ORDERED: NITROGLYCERIN 0.4 MG SL TAB SL PRN (19:00)
[2023-01-24] MEDS ORDERED: MORPHINE SULFATE INJ 2 MG/ml SYRG IV PRN (19:00)
[2023-01-24 20:00] VITALS: PULSE 92; RESP 20; O2SAT 95
[2023-01-24] MEDS ORDERED: ALENDRONATE SODIUM PO SCH (20:15)
[2023-01-24] MEDS ORDERED: cefTRIAXone 1GM/50ML D5W 50 ML IV ONE (21:56)
[2023-01-24] MEDS: cefTRIAXone 1GM/50ML D5W 50 ML IV SCH (21:58)
[2023-01-24] MEDS: APIXABAN 5 MG TAB PO SCH (22:00)
[2023-01-24] MEDS: FLECAINIDE ACETATE 50 MG TAB PO SCH (22:00)
[2023-01-24] MEDS ORDERED: METOPROLOL TARTRATE 25 MG TAB PO SCH (22:00)
[2023-01-25] VITALS (7 sets, daily range): BP systolic 106–126; BP diastolic 70–87; PULSE 70–107; RESP 17–20; TEMP 97.1–98.4; O2SAT 96–99
[2023-01-25] MEDS ORDERED: ATORVASTATIN 20 MG TAB ONE ×2 (09:34→22:01)
[2023-01-25] MEDS ORDERED: dilTIAZem HCL 60 MG TAB ONE ×3 (09:34→22:04)
[2023-01-25] MEDS ORDERED: APIXABAN 5 MG TAB ONE ×2 (09:34→22:01)
[2023-01-25 09:35] LABS: Basophils # (auto) 0 10 ^3/uL (0-0.2); Eosinophils # (auto) 0 10 ^3/uL (0-0.8); Hemoglobin 12.9 g/dL (12.2-16.2); Lymphocytes # (auto) 1.4 10 ^3/uL (0.4-5.4); Mean Corpuscular Hgb Conc. 32.6 g/dL (32.0-36.0); Monocytes # (auto) 0.2 10 ^3/uL (0-1.3); Neutrophils # (auto) 2.4 10 ^3/uL (1.6-8.6); Nucleated Red Blood Cells % 0.2 %; White Blood Cell 4.1 10^3/uL (4.4-10.8)
[2023-01-25] MEDS ORDERED: cefTRIAXone 1GM/50ML D5W 50 ML IV ONE (09:35)
[2023-01-25] MEDS ORDERED: PANTOPRAZOLE 40 MG/10 ML VIAL INJ IV ONE (09:35)
[2023-01-25 09:36] LABS: Eosinophils % (auto) 1.1 % (0.0-7.0); Hematocrit 39.7 % (36.0-46.0); Lymphocytes % (auto) 34.5 % (10.0-50.0); Mean Corpuscular Hemoglobin 33.4 pg (28.0-32.0); Mean Corpuscular Volume 102.4 fL (80.0-100.0); Monocytes % (auto) 5.4 % (0.0-12.0); Red Blood Cells 3.87 10^6/uL (4.0-5.20); Red Cell Distribution Width 14.5 % (11.8-14.3)
[2023-01-25 09:43] LABS: Alanine Aminotransferase 62 U/L (7-40); Albumin 3.8 g/dL (3.2-4.8); Alkaline Phosphatase 67 U/L (46-116); Anion Gap 7 (5-15); Aspartate Aminotransferase 44 U/L (13-40); BUN/Creatinine Ratio 7.5 (10.0-20.0); Blood Urea Nitrogen 7 mg/dL (9-23); Calcium 8.9 mg/dL (8.5-10.1); Carbon Dioxide 27 mmol/L (20-30); Chloride 106 mmol/L (98-107); Glucose 173 mg/dL (74-106); Potassium 3.5 mmol/L (3.5-5.1); Sodium 140 mmol/L (136-145)
[2023-01-25] MEDS: cefTRIAXone 1GM/50ML D5W 50 ML IV SCH (09:43)
[2023-01-25 09:44] LABS: Bilirubin, Total 0.8 mg/dL (0.2-1.0); Total Protein 6.3 g/dL (5.7-8.2)
[2023-01-25] MEDS: ATORVASTATIN 20 MG TAB PO SCH ×2 (09:44→22:00)
[2023-01-25] MEDS: APIXABAN 5 MG TAB PO SCH ×2 (09:44→22:33)
[2023-01-25] MEDS ORDERED: PANTOPRAZOLE 40 MG TAB PO ONE (10:06)
[2023-01-25] MEDS ORDERED: POTASSIUM CHL 20 Meq TABLET PO ONE (10:06)
[2023-01-25] MEDS: PANTOPRAZOLE 40 MG TAB PO SCH (10:09)
[2023-01-25] MEDS: POTASSIUM CHL 20 Meq TABLET PO SCH (10:10)
[2023-01-25 10:32] LABS: Amphetamine Screen, Urine Neg (NEGATIVE)
[2023-01-25 10:34] LABS: Barbiturate Scree,Urine Neg (NEGATIVE); Benzodiazephine Screen, Urine Neg (NEGATIVE); Cannabinoid Screen, Urine Neg (NEGATIVE); Cocaine Screen, Urine Neg (NEGATIVE); Opiate Scree,Urine Neg (NEGATIVE); Phencyclidine Screen, Urine Neg (NEGATIVE)
[2023-01-25 11:03] LABS: Magnesium 2.1 mg/dL (1.6-2.6)
[2023-01-25] MEDS: dilTIAZem HCL 60 MG TAB PO SCH ×2 (11:26→19:12)
[2023-01-25] MEDS: FLECAINIDE ACETATE 50 MG TAB PO SCH ×2 (11:36→22:30)
[2023-01-25 11:47] LABS: INR 1.14 (0.9-1.15); Partial Thromboplastin Time 29.3 SEC (24.5-34.5); Prothrombin Time 11.9 sec (9.3-11.8)
[2023-01-25] MEDS ORDERED: MELATONIN 5 MG TAB ONE (22:01)
[2023-01-25] MEDS: MELATONIN 5 MG TAB PO SCH (22:30)
[2023-01-26 05:40] VITALS: BP 110/79; PULSE 78; RESP 17; TEMP 98.3; O2SAT 99
[2023-01-26] MEDS ORDERED: dilTIAZem HCL 60 MG TAB ONE ×4 (06:17→22:55)
[2023-01-26] MEDS: dilTIAZem HCL 60 MG TAB PO SCH ×5 (06:27→23:07)
[2023-01-26 07:26] LABS: Eosinophils # (auto) 0.1 10 ^3/uL (0-0.8); Eosinophils % (auto) 1.4 % (0.0-7.0); Hemoglobin 13.8 g/dL (12.2-16.2); Monocytes # (auto) 0.3 10 ^3/uL (0-1.3); Neutrophils # (auto) 2.5 10 ^3/uL (1.6-8.6); Neutrophils % (auto) 59.2 % (37.0-80.0); White Blood Cell 4.3 10^3/uL (4.4-10.8)
[2023-01-26 07:28] LABS: Basophils # (auto) 0.1 10 ^3/uL (0-0.2); Basophils % (auto) 1.2 % (0.0-2.0); Hematocrit 41.9 % (36.0-46.0); Lymphocytes # (auto) 1.3 10 ^3/uL (0.4-5.4); Lymphocytes % (auto) 31.3 % (10.0-50.0); Mean Corpuscular Hemoglobin 33.5 pg (28.0-32.0); Mean Corpuscular Volume 101.4 fL (80.0-100.0); Monocytes % (auto) 6.9 % (0.0-12.0); Nucleated Red Blood Cells % 0.1 %; Red Blood Cells 4.13 10^6/uL (4.0-5.20); Red Cell Distribution Width 13.9 % (11.8-14.3)
[2023-01-26 08:00] VITALS: PULSE 113; PULSE 99
[2023-01-26 08:04] LABS: Alanine Aminotransferase 53 U/L (7-40); Albumin 3.9 g/dL (3.2-4.8); Alkaline Phosphatase 67 U/L (46-116); Anion Gap 7 (5-15); Aspartate Aminotransferase 38 U/L (13-40); BUN/Creatinine Ratio 7.6 (10.0-20.0); Bilirubin, Total 0.9 mg/dL (0.2-1.0); Blood Urea Nitrogen 7 mg/dL (9-23); Calcium 9.1 mg/dL (8.5-10.1); Carbon Dioxide 26 mmol/L (20-30); Chloride 109 mmol/L (98-107); Glucose 113 mg/dL (74-106); Potassium 4.2 mmol/L (3.5-5.1); Sodium 142 mmol/L (136-145); Total Protein 6.7 g/dL (5.7-8.2)
[2023-01-26] MEDS ORDERED: cefTRIAXone 1GM/50ML D5W 0 ML IV ONE (08:43)
[2023-01-26 09:00] VITALS: BP 106/57; PULSE 96; RESP 14; TEMP 97.8; O2SAT 97
[2023-01-26] MEDS: cefTRIAXone 1GM/50ML D5W 50 ML IV SCH (09:17)
[2023-01-26] MEDS ORDERED: APIXABAN 5 MG TAB ONE ×2 (09:39→22:04)
[2023-01-26] MEDS ORDERED: POTASSIUM CHL 20 Meq TABLET PO ONE (09:39)
[2023-01-26] MEDS ORDERED: PANTOPRAZOLE 40 MG TAB PO ONE (09:41)
[2023-01-26] MEDS: PANTOPRAZOLE 40 MG TAB PO SCH (09:45)
[2023-01-26] MEDS: POTASSIUM CHL 20 Meq TABLET PO SCH (09:45)
[2023-01-26] MEDS: APIXABAN 5 MG TAB PO SCH ×2 (09:45→22:07)
[2023-01-26] MEDS: FLECAINIDE ACETATE 50 MG TAB PO SCH ×2 (10:04→22:00)
[2023-01-26 13:00] VITALS: BP 117/72; PULSE 83; RESP 16; TEMP 98; O2SAT 98
[2023-01-26 16:58] VITALS: BP 105/71; PULSE 100; RESP 18; TEMP 98.1; O2SAT 96
[2023-01-26 20:00] VITALS: PULSE 100; PULSE 85; RESP 16; O2SAT 97
[2023-01-26] MEDS: MELATONIN 5 MG TAB PO SCH ×2 (22:00→22:07)
[2023-01-26] MEDS ORDERED: cefTRIAXone 1GM/50ML D5W 50 ML IV ONE (22:05)
[2023-01-26] MEDS ORDERED: MELATONIN 5 MG TAB ONE (22:05)
[2023-01-26] MEDS ORDERED: ATORVASTATIN 20 MG TAB ONE (22:05)
[2023-01-26] MEDS: ATORVASTATIN 20 MG TAB PO SCH (22:06)
[2023-01-27 04:51] VITALS: BP 103/69; PULSE 91; RESP 16; TEMP 97.7; O2SAT 96
[2023-01-27] MEDS: dilTIAZem HCL 60 MG TAB PO SCH ×3 (05:25→10:06)
[2023-01-27 06:29] LABS: Basophils # (auto) 0 10 ^3/uL (0-0.2); Basophils % (auto) 0.7 % (0.0-2.0); Eosinophils # (auto) 0.1 10 ^3/uL (0-0.8); Hematocrit 41.9 % (36.0-46.0); Hemoglobin 13.7 g/dL (12.2-16.2); Lymphocytes # (auto) 1.1 10 ^3/uL (0.4-5.4); Lymphocytes % (auto) 25.1 % (10.0-50.0); Mean Corpuscular Hemoglobin 33.2 pg (28.0-32.0); Mean Corpuscular Hgb Conc. 32.7 g/dL (32.0-36.0); Mean Corpuscular Volume 101.4 fL (80.0-100.0); Monocytes # (auto) 0.3 10 ^3/uL (0-1.3); Monocytes % (auto) 7.4 % (0.0-12.0); Neutrophils # (auto) 2.9 10 ^3/uL (1.6-8.6); Neutrophils % (auto) 64.8 % (37.0-80.0); Nucleated Red Blood Cells % 0.1 %; Red Blood Cells 4.13 10^6/uL (4.0-5.20); Red Cell Distribution Width 14.3 % (11.8-14.3); White Blood Cell 4.5 10^3/uL (4.4-10.8)
[2023-01-27 06:41] LABS: Anion Gap 8 (5-15); Carbon Dioxide 25 mmol/L (20-30); Chloride 108 mmol/L (98-107); Potassium 4.1 mmol/L (3.5-5.1); Sodium 141 mmol/L (136-145)
[2023-01-27 06:42] LABS: Calcium 8.6 mg/dL (8.7-10.4)
[2023-01-27 06:46] LABS: Glucose 104 mg/dL (74-106)
[2023-01-27 06:47] LABS: BUN/Creatinine Ratio 7.1 (10.0-20.0); Blood Urea Nitrogen 6 mg/dL (9-23)
[2023-01-27 08:00] VITALS: PULSE 88; PULSE 98; RESP 18; O2SAT 98
[2023-01-27] MEDS ORDERED: CALCIUM GLUC 1,000mg/50ml-NS 50 ML IV ONE (08:45)
[2023-01-27 09:00] VITALS: BP 130/80; PULSE 91; RESP 18; TEMP 98.3; O2SAT 93
[2023-01-27] MEDS: FLECAINIDE ACETATE 50 MG TAB PO SCH (10:05)
[2023-01-27] MEDS: cefTRIAXone 1GM/50ML D5W 50 ML IV SCH (10:05)
[2023-01-27] MEDS: PANTOPRAZOLE 40 MG TAB PO SCH (10:07)
[2023-01-27] MEDS: POTASSIUM CHL 20 Meq TABLET PO SCH (10:07)
[2023-01-27] MEDS: APIXABAN 5 MG TAB PO SCH (10:09)
[2023-01-27 13:00] VITALS: BP 116/76; PULSE 74; RESP 18; TEMP 98.7; O2SAT 100
[2023-01-27] MEDS ORDERED: DILT60TA2 PO (15:22)
[2023-01-27 16:30] VITALS: BP 121/81; PULSE 89; RESP 18; TEMP 98.4; O2SAT 97
[2023-01-28 08:58] LABS: Hepatitis B Surface Antibody Negative (Negative)
[2023-01-28 09:10] LABS: Hepatitis B Surface Antigen Negative (Negative)
[2023-01-28 09:32] LABS: Hepatitis C Antibody Negative (Negative)
== END 2023-01-27 18:18 | disposition home or self-care (01) | DRG 309 ==
LOC: EDBD 13:34 → ER 13:34 → TELE 18:52 → TELE-WESTW 22:09
PROVIDERS: ADMIT Internal Medicine; ATTEND Internal Medicine
DX: I48.0 Paroxysmal atrial fibrillation (principal); D68.69 Other thrombophilia; N30.00 Acute cystitis without hematuria; R55 Syncope and collapse; I48.92 Unspecified atrial flutter; E78.5 Hyperlipidemia, unspecified; N18.9 Chronic kidney disease, unspecified; I13.10 Hypertensive heart and chronic kidney disease without heart failure, with stage 1 through stage 4 chronic kidney disease, or unspecified chronic kidney disease; F41.9 Anxiety disorder, unspecified; R73.9 Hyperglycemia, unspecified; R74.01 Elevation of levels of liver transaminase levels; I25.10 Atherosclerotic heart disease of native coronary artery without angina pectoris; M81.0 Age-related osteoporosis without current pathological fracture; Z79.01 Long term (current) use of anticoagulants; Z79.899 Other long term (current) drug therapy; Z80.3 Family history of malignant neoplasm of breast; Z80.7 Family history of other malignant neoplasms of lymphoid, hematopoietic and related tissues; Z82.49 Family history of ischemic heart disease and other diseases of the circulatory system; Z82.5 Family history of asthma and other chronic lower respiratory diseases
CPT/HCPCS: 36415; 71045; 80048; 80053; 80061; 80307; 81001; 82306; 82553; 82607; 83036; 83690; 83735; 83880; 84443; 84484; 85025; 85610; 85730; 86706; 86803; 87040; 87081; 87086; 87340; 93005; 97163; C9113; G0378

== ENCOUNTER → 2023-02-27 | Outpatient (CLI) | payer MEDICARE, MEDICAID ==
[~2023-02-27] MED LIST changes: -ACET500T58 PO; -BENZ100C97 PO; -CALC280T PO; +DILT60TA2 PO
[2023-02-27 09:54] LABS: Alanine Aminotransferase 18 U/L (7-40); Albumin 4.6 g/dL (3.2-4.8); Alkaline Phosphatase 67 U/L (46-116); Anion Gap 8 (5-15); Aspartate Aminotransferase 21 U/L (13-40); BUN/Creatinine Ratio 16.3 (10.0-20.0); Blood Urea Nitrogen 14 mg/dL (9-23); Calcium 9.4 mg/dL (8.5-10.1); Carbon Dioxide 28 mmol/L (20-30); Chloride 105 mmol/L (98-107); Cholesterol 162 mg/dL (< 200); Glucose 98 mg/dL (74-106); LDL Cholesterol 57 mg/dL (< 100); Potassium 3.4 mmol/L (3.5-5.1); Sodium 141 mmol/L (136-145); Triglycerides 64 mg/dL (< 150)
[2023-02-27 09:55] LABS: Bilirubin, Direct 0.3 mg/dL (<0.3); HDL Cholesterol 88 mg/dL (40-59); Total Protein 7.7 g/dL (5.7-8.2)
== END | disposition home or self-care (01) ==
LOC: LAB 08:40
PROVIDERS: ATTEND Specialist
DX: I10 Essential (primary) hypertension (principal); E03.9 Hypothyroidism, unspecified; E11.8 Type 2 diabetes mellitus with unspecified complications; R94.5 Abnormal results of liver function studies; D64.9 Anemia, unspecified; E78.5 Hyperlipidemia, unspecified
CPT/HCPCS: 36415; 80048; 80061; 80076; 83036; 84443

== ENCOUNTER 2023-03-06 16:35 | Emergency (ER) | payer MEDICAID, OTHER ==
[~2023-03-06] VITALS: Ht 149.9 cm; Wt 47.9 kg
[2023-03-06 18:34] LABS: Basophils # (auto) 0.1 10 ^3/uL (0-0.2); Eosinophils # (auto) 0.1 10 ^3/uL (0-0.8); Monocytes # (auto) 0.5 10 ^3/uL (0-1.3)
[2023-03-06 18:35] LABS: Basophils % (auto) 1.1 % (0.0-2.0); Eosinophils % (auto) 1.7 % (0.0-7.0); Hematocrit 41.6 % (36.0-46.0); Hemoglobin 13.7 g/dL (12.2-16.2); Lymphocytes # (auto) 1.8 10 ^3/uL (0.4-5.4); Lymphocytes % (auto) 30.4 % (10.0-50.0); Mean Corpuscular Hemoglobin 33.5 pg (28.0-32.0); Mean Corpuscular Hgb Conc. 32.8 g/dL (32.0-36.0); Mean Corpuscular Volume 102.1 fL (80.0-100.0); Monocytes % (auto) 9.1 % (0.0-12.0); Neutrophils # (auto) 3.4 10 ^3/uL (1.6-8.6); Neutrophils % (auto) 57.7 % (37.0-80.0); Nucleated Red Blood Cells % 0.1 %; Red Blood Cells 4.08 10^6/uL (4.0-5.20); Red Cell Distribution Width 13.5 % (11.8-14.3); White Blood Cell 5.9 10^3/uL (4.4-10.8)
[2023-03-06 19:07] LABS: Alanine Aminotransferase 24 U/L (7-40); Albumin 4.3 g/dL (3.2-4.8); Alkaline Phosphatase 67 U/L (46-116); Anion Gap 6 (5-15); Aspartate Aminotransferase 29 U/L (13-40); BUN/Creatinine Ratio 12.4 (10.0-20.0); Bilirubin, Total 0.7 mg/dL (0.2-1.0); Blood Urea Nitrogen 12 mg/dL (9-23); Calcium 10.1 mg/dL (8.5-10.1); Carbon Dioxide 27 mmol/L (20-30); Chloride 107 mmol/L (98-107); Glucose 124 mg/dL (74-106); Potassium 3.7 mmol/L (3.5-5.1); Sodium 140 mmol/L (136-145); Total Protein 7.4 g/dL (5.7-8.2)
[2023-03-06] MEDS ORDERED: dilTIAZem 25 MG/5 ML VIAL IV ONE (19:15)
[2023-03-06 19:30] VITALS: PULSE 98; RESP 16; TEMP 97.6; O2SAT 98
[2023-03-06 21:36] VITALS: BP 115/70; PULSE 75; RESP 13; O2SAT 99
== END 2023-03-06 21:34 | disposition home or self-care (01) ==
LOC: ER 16:35
DX: R00.2 Palpitations (principal); I48.0 Paroxysmal atrial fibrillation; I10 Essential (primary) hypertension; I25.10 Atherosclerotic heart disease of native coronary artery without angina pectoris; E78.5 Hyperlipidemia, unspecified; Z79.899 Other long term (current) drug therapy
CPT/HCPCS: 36415; 80053; 84484; 85025; 93005; 96374